=== PATIENT | female | born 1950 | race Caucasian/White ===

== ENCOUNTER 2017-08-14 12:47 | Emergency (ER) | payer SELFPAY ==
[~2017-08-14] VITALS: Wt 148.7 kg
[2017-08-14] MEDS ORDERED: ONDANSETRON (ODT) 4 MG TAB ODT STA (13:40)
[2017-08-14] MEDS ORDERED: FUROSEMIDE 20 MG TAB PO ONE (14:00)
[2017-08-14] MEDS ORDERED: traMADol 50 MG TAB PO ONE (14:00)
[2017-08-14] MEDS ORDERED: TRAM50TA2 PO (14:33)
[2017-08-14] MEDS ORDERED: FURO-109 PO (14:33)
[2017-08-14 14:57] VITALS: BP 117/85; PULSE 87; RESP 20; TEMP 98.4
--- NOTE | 2017-08-14 16:20 | ERD ---
ER Documentation Chief Complaint Chief Complaint BILATERAL LEG SWELLING X 1 WEEK HPI Patient is a 66-year-old female with hypertension and coronary artery disease who presents with bilateral knee pain. The patient is a history of the same in 2013. The patient was given some medication which helped and she needs "a pill for water". She has had no treatment as of yet. She has sweating with walking. She had shortness of breath as well. She has had this off and on for "quite some time". There is no trauma and no treatment as of yet. The patient does not currently have a primary doctor. Upon review of old medical records this is the patient's second visit to the ER since 2012. ROS All systems reviewed and are negative except as per history of present illness. Medications Home Meds Active Scripts Tramadol HCl (Tramadol HCl) 50 Mg Tablet, 50 MG PO Q6, #20 TAB Prov:YULIANA COLLIER MD 08/14/17 Furosemide* (Lasix*) 40 Mg Tablet, 40 MG PO DAILY, #30 TAB Prov:YULIANA COLLIER MD 08/14/17 Allergies Allergies: Coded Allergies: No Known Allergy (Unverified , 08/14/17) PMhx/Soc History of Surgery: Yes (GALLSTONES) Anesthesia Reaction: No Hx Neurological Disorder: No Hx Respiratory Disorders: No Hx Cardiac Disorders: No Hx Psychiatric Problems: No Hx Miscellaneous Medical Probl: No Hx Alcohol Use: Yes Hx Substance Use: No Hx Tobacco Use: No Smoking Status: Never smoker FmHx Family History: diabetes Physical Exam Vitals Vital Signs Date Time Temp Pulse Resp B/P Pulse Ox O2 Delivery O2 Flow Rate FiO2 08/14/17 14:57 98.4 87 20 117/85 98 Room Air 08/14/17 12:51 98.4 85 20 204/93 96 Physical Exam Const: Moderate distress secondary to pain Head: Atraumatic Eyes: Normal Conjunctiva ENT: Normal External Ears, Nose and Mouth. Neck: Full range of motion..~ No meningismus. Resp: Clear to auscultation bilaterally Cardio: Regular rate and rhythm, no murmurs Abd: Soft, obese Skin: No petechiae or rashes Back: No midline or flank tenderness Ext: 1+ pitting edema bilateral lower extremities Neur: Awake and alert Psych: Normal Mood and Affect Results 24 hrs Current Medications Medications (Trade) Dose Ordered Sig/Chirag Route PRN Reason Start Time Stop Time Status Last Admin Dose Admin Furosemide (Lasix) 40 mg ONCE ONCE PO 08/14/17 14:00 08/14/17 14:01 DC 08/14/17 14:01 Tramadol HCl (Ultram) 50 mg ONCE ONCE PO 08/14/17 14:00 08/14/17 14:01 DC 08/14/17 14:01 Ondansetron HCl (Zofran Odt) 4 mg ONCE STAT ODT 08/14/17 13:40 08/14/17 13:41 DC 08/14/17 14:01 Procedures/MDM EKG read by me: Rate/Rhythm: Regular rate and rhythm at a normal rate Intervals: Normal Impression: No evidence of ischemia or arrhythmia Patient is a 66-year-old female who presents with bilateral lower extremity swelling and knee pain. I doubt DVT. I believe the patient likely has joint pain secondary to significant obesity and joint arthritis. The patient will be given Ultram for pain and Lasix daily for fluid. Her EKG shows no signs of ischemia or arrhythmia. I believe outpatient management is appropriate. The patient can return for any worsening symptoms. The patient should follow-up with a primary doctor within 24-48 hours. Departure Diagnosis: Primary Impression: Edema Edema type: unspecified Qualified Code: R60.9 - Edema, unspecified type Additional Impression: Knee pain, bilateral Chronicity: acute Qualified Code: M25.561 - Acute pain of both knees Condition: Fair Patient Instructions: Peripheral Edema, Bilateral, Knee Pain, Uncertain Cause Referrals: Your doctor Additional Instructions: Llame al doctor MAANA y thee rodrigo MICKEY PARA DENTRO DE 1-2 BONILLA.Dgale a la secretaria que nosotros le instruimos hacer esta mickey.Avise o llame si givens condicin se empeora antes de la mickey. Regresa aqui si peor o no mejor. YULIANA COLLIER MD Aug 14, 2017 16:20
== END 2017-08-14 14:59 | disposition home or self-care (01) ==
LOC: E/R 12:47
DX: M25.561 Pain in right knee (principal); R60.0 Localized edema; M25.562 Pain in left knee
CPT/HCPCS: 93005

== ENCOUNTER 2017-09-11 14:06 | Emergency (ER) | payer MEDICAID ==
[~2017-09-11] VITALS: Ht 157.5 cm; Wt 146.0 kg
[~2017-09-11 14:06] MED LIST: FURO-109 PO; TRAM50TA2 PO
[2017-09-11 14:10] VITALS: Ht 157.5 cm; Wt 146.0 kg
--- NOTE | 2017-09-11 16:46 | ERD ---
ER Documentation Chief Complaint Chief Complaint GEN BODY RASH,ALLERGIC REACTION TO NEW PRESCRIPTION MEDS LASIX,TRAMADOL HPI 66-year-old female, with history of hypertension, presents to the emergency department complaining about 2 weeks with painful, pustular rash located on the right chest. The rash has a dermatomal distribution, associated with burning and tingling. No fever, no chills, no chest pain, no shortness of breath. The patient has history of chickenpox in childhood. ROS SYSTEMIC symptoms: no fever, chills, no night sweats, no weight loss EYE symptoms: No blurred vision, no eye discharge OTOLARYNGEAL symptoms: No hearing loss. No ear pain, no sore throat CARDIOVASCULAR symptoms: No chest pain or discomfort, no palpitations. PULMONARY symptoms: No dyspnea, no cough, no wheezing. GASTROINTESTINAL symptoms: No abdominal pain, no nausea, no vomiting, no diarrhea MUSCULOSKELETAL symptoms: No arthralgias, no muscle aches. NEUROLOGY symptoms: No confusion, no syncope, no numbness or tingling. SKIN: Per HPI Medications Home Meds Active Scripts Hydrocodone/Acetaminophen ([place] 5-325 Tablet) 1 Each Tablet, 1 TAB PO Q6H Y for PAIN, #12 TAB Prov:ARPIT LYNCH MD 09/11/17 Prednisone* (Prednisone*) 20 Mg Tab, 40 MG PO DAILY for 5 Days, TAB Prov:ARPIT LYNCH MD 09/11/17 Tramadol HCl (Tramadol HCl) 50 Mg Tablet, 50 MG PO Q6, #20 TAB Prov:YULIANA COLLIER MD 08/14/17 Furosemide* (Lasix*) 40 Mg Tablet, 40 MG PO DAILY, #30 TAB Prov:YULIANA COLLIER MD 08/14/17 Allergies Allergies: Coded Allergies: No Known Allergy (Unverified , 08/14/17) PMhx/Soc History of Surgery: Yes (Cholecystectomy; ) Anesthesia Reaction: No Hx Neurological Disorder: No Hx Respiratory Disorders: No Hx Cardiac Disorders: Yes (CHF) Hx Psychiatric Problems: No Hx Miscellaneous Medical Probl: No Hx Alcohol Use: Yes Hx Substance Use: No Hx Tobacco Use: No Smoking Status: Never smoker Physical Exam Vitals Vital Signs Date Time Temp Pulse Resp B/P Pulse Ox O2 Delivery O2 Flow Rate FiO2 09/11/17 14:10 98.4 85 18 188/86 100 Physical Exam Patient is in no acute distress, vital signs stable. Alert and fully oriented. EYES: PERRLA, EOMI, Sclera and conjunctiva appear normal. EARS: Canals clear, tympanic membranes WNL THROAT: Normal oropharynx. NECK: Supple, No lymphadenopathy. Full ROM without pain or tenderness. HEART: RRR, no rubs, murmurs, clicks or gallops. LUNGS: Clear to auscultation. ABDOMEN: Soft, non-tender without masses or hepatosplenomegaly. EXTREMITIES: No edema bilaterally. BACK: Full ROM, no deformity, normal back exam NEURO: Cranial nerves grossly intact, no motor or sensory deficit Skin: Pustular rash in dermatomal distribution on the right chest. Procedures/MDM 66y/o female patient with history of hypertension, presents to the ED c/o painful rash for 14 days. Vital signs stable, Physical exam revealed a pustular rash in dermatomal distribution. Differential diagnosis include but not limited to: Herpes simplex infection, insect bites, impetigo, contact dermatitis. Low suspicion for cellulitis, abscess. Physical examination and clinical presentation consistent most likely with shingles. During the ED course the patient remained stable, no new complaints. Results and clinical impression discussed with patient who agrees with management. The patient is stable to be treated outpatient and will be discharged home with a Rx for prednisone and [place], at this time, after 2 weeks no indication for antiviral treatment, some side effects of prescribed medications (headache, rash, nausea, vomiting, diarrhea, drowsiness, habituation , bleeding, hypertension, interactions with other medications) were reviewed. The patient was instructed to follow up with the primary care provider in the next 48h. If symptoms persist, worsen or new symptoms develop, then patient should return to the ED immediately. Instructions explained and given directly by me to the patient in [place] with acknowledgment and demonstrated understanding. Disclaimer: Inadvertent spelling and grammatical errors are likely due to EHR/ dictation software use and do not reflect on the overall quality of patient care. Also, please note that the electronic time recorded on this note does not necessarily reflect the actual time of the patient encounter. Departure Diagnosis: Primary Impression: Shingles Condition: Stable Additional Instructions: Call your primary care doctor TOMORROW for an appointment during the next 1-2 days. See the doctor sooner or return here if your condition worsens before your appointment time. Thank you very much for allowing us to participate in your care. Your health and safety is our top priority at [facility]. Have prescriptions filled and follow precisely the directions on the label. Follow-up with primary care provider during the next 4 days and bring all the information and medications prescribed. If illness has not improved in 2 days, then make an appointment with primary care provider. If the provider is unavailable, return to the Emergency Department immediately. ARPIT LYNCH MD Sep 11, 2017 16:46
[2017-09-11] MEDS ORDERED: HYDR-906 PO (16:49)
[2017-09-11] MEDS ORDERED: PRED20TA PO (16:49)
== END 2017-09-11 17:00 | disposition home or self-care (01) ==
LOC: FTE 14:06
DX: B02.9 Zoster without complications (principal); I10 Essential (primary) hypertension; I50.9 Heart failure, unspecified
CPT/HCPCS: 99284